=== PATIENT | female | born 1950 | race Caucasian/White ===

== ENCOUNTER 2017-06-21 20:56 | Emergency (ER) | payer BC ==
[~2017-06-21] VITALS: Ht 170.2 cm; Wt 72.6 kg
[2017-06-21 21:11] VITALS: BP_SYST 123
[2017-06-21] MEDS ORDERED: LOSA50TA3 PO (21:24)
[2017-06-21] MEDS ORDERED: HYDR-2470 PO (21:24)
[2017-06-21] MEDS ORDERED: LANS30CA10 PO (21:25)
[2017-06-21] MEDS ORDERED: PRO20 PO (21:25)
[2017-06-21] MEDS ORDERED: RANI-362 PO (21:25)
[2017-06-21] MEDS ORDERED: FLUO10CA65 PO (21:26)
[2017-06-21] MEDS ORDERED: LEVO100T PO (21:26)
[2017-06-22] VITALS: BP_SYST 117
== END 2017-06-22 | disposition home or self-care (01) ==
LOC: SED 20:56
DX: S01.81XA Laceration without foreign body of other part of head, initial encounter (principal); M25.532 Pain in left wrist; K21.9 Gastro-esophageal reflux disease without esophagitis; I10 Essential (primary) hypertension; E78.00 Pure hypercholesterolemia, unspecified; Z88.0 Allergy status to penicillin; Z88.2 Allergy status to sulfonamides; Z88.1 Allergy status to other antibiotic agents; Z79.899 Other long term (current) drug therapy; W19.XXXA Unspecified fall, initial encounter; Y93.89 Activity, other specified; Y92.89 Other specified places as the place of occurrence of the external cause; Y99.8 Other external cause status
CPT/HCPCS: 70450-TC; 99284